=== PATIENT | female | born 1965 | race Asian ===

== ENCOUNTER 2020-02-04 18:43 | Emergency (ER) | payer OTHER, SELFPAY ==
[2020-02-04 18:59] VITALS: BP 137/81; PULSE 85; RESP 20; TEMP 36.6; O2SAT 100
--- NOTE | 2020-02-04 19:22 | ED.ABDPAIN ---
HPI - Abdominal Pain General Chief Complaint: Urogenital-Female Stated Complaint: uti Time Seen by Provider: 02/04/20 19:20 Source: patient Mode of arrival: ambulatory Limitations: no limitations History of Present Illness HPI narrative: Patient is a 54-year-old female who presents complaining of urinary burning and frequency x3 days. She reports history of hysterectomy only approximately 1 month ago and has made 2-week follow-up check without complications. She denies vaginal bleeding or discharge. She denies lower back pain, abdominal pain, nausea vomiting or diarrhea. She reports increasing fluid intake. She denies taking [id number] medications for pain at this time. MD elicited complaint: other (UTI) Related Data Home Medications Medication Instructions Recorded Confirmed omeprazole magnesium [Prilosec OTC] 20 mg PO DAILY 02/04/20 02/04/20 Allergies Allergy/AdvReac Type Severity Reaction Status Date / Time No Known Allergies Allergy Verified 02/04/20 19:00 Review of Systems Review of Systems: Narrative: CONSTITUTIONAL: Denies fever, chills, or sweats. EYES: Denies visual changes, redness, or discharge. ENT: Denies rhinorrhea, congestion, sore throat, or otalgia. CARDIOVASCULAR: Denies chest pain, palpitations, or edema. RESPIRATORY: Denies cough or dyspnea. GASTROINTESTINAL: Denies abdominal pain, nausea, vomiting, or diarrhea. GENITOURINARY: Dysuria and frequency. SKIN: Denies rash or itching. MUSCULOSKELETAL: Denies back pain, joint pain, or myalgia. NEUROLOGIC: Denies headache, numbness, dizziness, or weakness. PSYCHIATRIC: Denies anxiety or depression. PMFSH Past Medical History Medical History (Updated 02/04/20 @ 19:31 by TANNER Lilly) No significant family history No significant past medical history Surgical History Surgical History (Updated 02/04/20 @ 19:25 by TANNER Lilly) H/O: hysterectomy Social History Social History (Updated 02/04/20 @ 19:25 by TANNER Lilly) Smoking status: Never smoker Alcohol intake: never Substance use: never Living arrangements: with family Exam Narrative: Exam Narrative: GENERAL: Well-appearing, well-nourished, and in no acute distress. HEAD: Normocephalic, atraumatic. EYES: EOMI. No redness or drainage. Conjunctiva are normal. ENT: Mucous membranes pink and moist. CHEST: No respiratory distress. Clear to auscultation. HEART: Regular rate and rhythm. No murmur appreciated. Normal peripheral pulses. GI: Soft, nontender without rebound, or guarding. No distention. Bowel sounds normal in all quadrants. EXTREMITIES: Normal range of motion. No edema. SKIN: Warm, dry, no rash. NEURO: No focal deficits. Alert and oriented x3. Gait steady. PSYCH: Normal affect. No signs of depression or anxiety. Course Vital Signs Vital signs: Vital Signs Temperature 36.6 C 02/04/20 18:59 Pulse Rate 85 02/04/20 18:59 Respiratory Rate 20 02/04/20 18:59 Blood Pressure 137/81 02/04/20 18:59 Pulse Oximetry 100 02/04/20 18:59 Temperature 36.6 C 02/04/20 18:59 Pulse Rate 85 02/04/20 18:59 Respiratory Rate 20 02/04/20 18:59 Blood Pressure 137/81 02/04/20 18:59 Pulse Oximetry 100 02/04/20 18:59 Reviewed. Patient has been instructed to follow-up with her PCP regarding her blood pressure. MDM - Abdominal Pain MDM Narrative Medical decision making narrative: Patient to be treated for UTI symptoms. Discussed with patient the need to follow-up with [facility] in 3 to 5 days if after treatment symptoms persist. Written prescription for Macrobid 100 mg twice daily x5 days given to patient as requested paper prescription related to [employer] insurance and availability of filling prescription. Patient is stable for discharge to home with outpatient follow-up as discussed. Differential Diagnosis Differential diagnosis: Likely other (UTI) Lab Data Labs: Urine Glucose Negative Refe
== END 2020-02-04 19:37 | disposition home or self-care (01) ==
PROVIDERS: Emergency Provider Nurse Practitioner
DX: N39.0 Urinary tract infection, site not specified (principal)
CPT/HCPCS: 81003; 87086; 99203; G0463